=== PATIENT | female | born 1990 | race Caucasian/White ===

== ENCOUNTER 2018-01-02 08:19 | Emergency (ER) | payer OTHER ==
[2018-01-02 08:40] VITALS: BP 97/65
--- NOTE | 2018-01-02 08:44 | UC ---
Throat Pain/Nasal Jameel HPI - HPI Summary HPI Summary: Sore throat for about 3 days. She has a nephew with step throat. She denies fever or vomiting. - History of Current Complaint Chief Complaint: UCRespiratory Stated Complaint: st Time Seen by Provider: 01/02/18 08:39 Hx Obtained From: Patient Hx Last Menstrual Period: 12/13/17 Onset/Duration: Gradual Onset, Lasting Days, Still Present Severity: Moderate Pain Intensity: 6 Cough: Nonproductive Associated Signs & Symptoms: Positive: Dysphagia. Negative: Sinus Discomfort, Nasal Discharge, Fever, Vomiting, Rash - Allergies/Home Medications Allergies/Adverse Reactions: Allergies Allergy/AdvReac Type Severity Reaction Status Date / Time No Known Allergies Allergy Verified 01/02/18 08:32 Home Medications: Home Medications Multivitamin [Multivitamins] 1 each PO DAILY 01/02/18 [History Confirmed ] PMH/Surg Hx/FS Hx/Imm Hx Previously Healthy: Yes - Surgical History Surgical History: Yes Surgery Procedure, Year, and Place: right ear tubes - Family History Known Family History: Positive: Other - Nephew had strep throat. - Social History Lives: With Family Alcohol Use: Rare Substance Use Type: None Smoking Status (MU): Never Smoked Tobacco Review of Systems ENT: Sore Throat All Other Systems Reviewed And Are Negative: Yes Physical Exam Triage Information Reviewed: Yes Appearance: Well-Appearing, No Pain Distress, Well-Nourished Vital Signs: Initial Vital Signs Temp 98.4 F 01/02/18 08:34 Pulse 58 01/02/18 08:34 Resp 16 01/02/18 08:34 BP 97/65 01/02/18 08:34 Pulse Ox 100 01/02/18 08:34 Vital Signs Reviewed: Yes Eye Exam: Normal Eyes: Positive: Conjunctiva Clear ENT: Positive: Pharyngeal erythema, TMs normal, Uvula midline. Negative: TM bulging, TM dull, TM red, Tonsillar swelling, Tonsillar exudate, Trismus, Muffled voice Neck: Positive: Supple, Nontender, No Lymphadenopathy Respiratory: Positive: Lungs clear, Normal breath sounds, No respiratory distress, No accessory muscle use. Negative: Respiratory distress, Decreased breath sounds, Accessory muscle use, Crackles, Rhonchi, Stridor Cardiovascular: Positive: No Murmur, Pulses Normal Abdomen Description: Positive: Soft. Negative: Distended, Guarding Musculoskeletal: Positive: Strength Intact, ROM Intact, No Edema Neurological: Positive: Alert, Muscle Tone Normal. Negative: Fatigued Skin: Negative: rashes Throat Pain/Nasal Course/Dx - Differential Dx/Diagnosis Provider Diagnoses: viral pharyngitis Discharge - Sign-Out/Discharge Documenting (check all that apply): Discharge - Discharge Plan Condition: Good Disposition: HOME Patient Education Materials: Pharyngitis (ED) Referrals: Raul Al [Primary Care Provider] - - Billing Disposition and Condition Condition: GOOD Disposition: HOME
== END 2018-01-02 09:02 | disposition home or self-care (01) ==
LOC: UCCORT 08:19
DX: J02.8 Acute pharyngitis due to other specified organisms (principal); Z20.89 Contact with and (suspected) exposure to other communicable diseases
CPT/HCPCS: 87651; 99211; G0463

== ENCOUNTER 2019-09-10 08:35 | Emergency (ER) | payer SELFPAY ==
[2019-09-10 08:53] VITALS: BP 114/70
--- NOTE | 2019-09-10 09:25 | UC ---
Respiratory Complaint HPI - HPI Summary HPI Summary: 29 yo female with <48 hr hx of fever/chills/nasal congestion and cough wheezes at times TAVARES and myalgias (++++) - History of Current Complaint Chief Complaint: UCGeneralIllness Stated Complaint: FEVER,CONGESTION,COUGH,BODY ACHES,TAVARES Time Seen by Provider: 09/10/19 09:18 Hx Obtained From: Patient Hx Last Menstrual Period: 07/29/19 Onset/Duration: Sudden Onset, Lasting Days Timing: Constant Severity Initially: Moderate Severity Currently: Severe Pain Intensity: 8 Pain Scale Used: 0-10 Numeric Character: Cough: Nonproductive Aggravating Factors: Nothing Associated Signs And Symptoms: Positive: Fever, Chills, Nasal Congestion, Sinus Discomfort - Allergies/Home Medications Allergies/Adverse Reactions: Allergies Allergy/AdvReac Type Severity Reaction Status Date / Time No Known Allergies Allergy Verified 09/10/19 08:48 Home Medications: Home Medications Acetaminophen [Tylenol Extra Strength] 1 tab PO ONCE 09/10/19 [History Confirmed 09/10/19] Amoxicillin PO (*) [Amoxicillin 500 MG CAP*] 1 tab PO BID 09/10/19 [History Confirmed 09/10/19] Ibuprofen TAB* [Advil TAB*] 2 tab PO ONCE 09/10/19 [History Confirmed 09/10/19] PMH/Surg Hx/FS Hx/Imm Hx Previously Healthy: Yes Respiratory History: Asthma - as child - Surgical History Surgical History: Yes Surgery Procedure, Year, and Place: right ear tubes - Family History Known Family History: Positive: Other - Nephew had strep throat. - Social History Alcohol Use: Rare Substance Use Type: None Smoking Status (MU): Never Smoked Tobacco Review of Systems All Other Systems Reviewed And Are Negative: Yes Constitutional: Positive: Fever, Chills, Fatigue Skin: Positive: Negative Eyes: Positive: Negative ENT: Positive: Nasal Discharge, Sinus Congestion, Sinus Pain/Tenderness Respiratory: Positive: Cough Cardiovascular: Positive: Negative Gastrointestinal: Positive: Negative Genitourinary: Positive: Negative Motor: Positive: Negative Neurovascular: Positive: Negative Musculoskeletal: Positive: Negative Neurological: Positive: Headache Psychological: Positive: Negative Physical Exam Triage Information Reviewed: Yes Appearance: Well-Appearing, Well-Nourished Vital Signs: Initial Vital Signs Temp 100.1 F 09/10/19 08:49 Pulse 105 09/10/19 08:49 Resp 16 09/10/19 08:49 BP 114/70 09/10/19 08:49 Pulse Ox 98 09/10/19 08:49 Vital Signs Reviewed: Yes Eyes: Positive: Conjunctiva Clear ENT: Positive: Hearing grossly normal, Nasal congestion, Nasal drainage, TMs normal, Sinus tenderness, Uvula midline. Negative: Tonsillar swelling, Tonsillar exudate, Trismus, Muffled voice, Hoarse voice, Dental tenderness Dental Exam: Normal Neck: Positive: Supple, Nontender, No Lymphadenopathy Respiratory: Positive: Lungs clear, Normal breath sounds, No respiratory distress, No accessory muscle use Cardiovascular: Positive: RRR, Tachycardia Musculoskeletal: Positive: ROM Intact, No Edema Neurological Exam: Normal Psychological Exam: Normal Skin Exam: Normal Respiratory Course/Dx - Course Course Of Treatment: flu + (influenza A) - Differential Dx/Diagnosis Provider Diagnosis: Influenza A Discharge ED - Sign-Out/Discharge Documenting (check all that apply): Patient Departure All imaging exams completed and their final reports reviewed: No Studies - Discharge Plan Condition: Stable Disposition: HOME Patient Education Materials: Influenza (ED) Referrals: Raul Al [Primary Care Provider] - - Billing Disposition and Condition Condition: STABLE Disposition: Home
[2019-09-10 09:37] LABS: Influenza A Molecular POSITIVE (Negative)
== END 2019-09-10 09:51 | disposition home or self-care (01) ==
LOC: UCCORT 08:35
DX: J11.1 Influenza due to unidentified influenza virus with other respiratory manifestations (principal); J45.909 Unspecified asthma, uncomplicated
CPT/HCPCS: 99212; G0463